=== PATIENT | male | born 1960 | race Caucasian/White ===

== ENCOUNTER → 2020-08-18 | Outpatient (CLI) | payer BC ==
--- NOTE | 2020-08-19 12:15 | US ---
EXAMINATION TYPE: US scrotum with doppler. Grayscale and color Doppler Duplex imaging performed of t he scrotum. 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 Pt states left testicle pain an d swelling that has now subsided/ pt states right testicle undescended since EXAM MEASUREMENTS: TESTICLES: Right Testicle: 4.8 x 1.6 x 3.6 cm Left Testicle: 4.9 x 2.1 x 3.4 cm EPIDIDYMIS HEAD: Right Epididymis: 1.5 cm Left Epididymis: 1.1 cm Doppler performed to assess for testicular vascularity; good bilateral color flow and waveforms are s een. Presence of hydroceles: No Presence of varicoceles: Yes, lateral to left testicle Right epi head cyst= 0.9 x 0.8 x 1.5 cm Right testicle grossly heterogeneous No concerning scrotal fluid collection or hydrocele. IMPRESSION: Markedly heterogeneous right testicle, cannot exclude diffuse infiltrative neoplasm. Advi se urology referral.
== END | disposition home or self-care (01) ==
LOC: RADUSMAIN 17:27
PROVIDERS: ATTEND Family Medicine
DX: N42.9 Disorder of prostate, unspecified (principal); I86.1 Scrotal varices
CPT/HCPCS: 76870; 93975

== ENCOUNTER 2021-09-19 04:44 | Emergency (ER) | payer OTHER ==
[2021-09-19] MEDS ORDERED: SODIUM CHLORIDE 0.9% 1,000 ML IV STA (05:20)
[2021-09-19] MEDS ORDERED: METOPROLOL TARTRATE 5 MG/5 ML VIAL IVP STA (05:20)
--- NOTE | 2021-09-19 05:20 | ED ---
SOB HPI - General Chief Complaint: Shortness of Breath Stated Complaint: headache,SOB,hypertension Time Seen by Provider: 09/19/21 04:46 Source: patient Mode of arrival: ambulatory - Related Data Home Medications Medication Instructions Recorded Confirmed Atorvastatin [Lipitor] 80 mg PO DAILY 11/29/16 11/29/16 Losartan Potassium [Cozaar] 50 mg PO DAILY PRN 11/29/16 11/29/16 hydroCHLOROthiazide 25 mg PO DAILY 11/29/16 11/29/16 Allergies Allergy/AdvReac Type Severity Reaction Status Date / Time No Known Allergies Allergy Verified 09/19/21 04:50 Review of Systems ROS Statement: Those systems with pertinent positive or pertinent negative responses have been documented in the HPI. ROS Other: All systems not noted in ROS Statement are negative. Past Medical History Past Medical History: Hypertension Additional Past Medical History / Comment(s): atrial flutter History of Any Multi-Drug Resistant Organisms: None Reported Past Surgical History: Hernia Repair Past Psychological History: No Psychological Hx Reported Smoking Status: Never smoker Past Alcohol Use History: Occasional Past Drug Use History: None Reported Course Vital Signs 09/19/21 09/19/21 04:45 05:50 Temperature 97 F L Pulse Rate 65 66 Respiratory 18 16 Rate Blood Pressure 163/94 160/99 O2 Sat by Pulse 98 97 Oximetry Medical Decision Making - Lab Data Result diagrams: 09/19/21 05:46 Lab Results 09/19/21 Range/Units 05:46 WBC 6.4 (3.8-10.6) k/uL RBC 4.85 (4.30-5.90) m/uL Hgb 16.0 (13.0-17.5) gm/dL Hct 44.8 (39.0-53.0) % MCV 92.3 (80.0-100.0) fL MCH 33.0 (25.0-35.0) pg MCHC 35.8 (31.0-37.0) g/dL RDW 12.9 (11.5-15.5) % Plt Count 208 (150-450) k/uL MPV 8.1 Neutrophils % 71 % Lymphocytes % 17 % Monocytes % 7 % Eosinophils % 3 % Basophils % 1 % Neutrophils # 4.5 (1.3-7.7) k/uL Lymphocytes # 1.1 (1.0-4.8) k/uL Monocytes # 0.4 (0-1.0) k/uL Eosinophils # 0.2 (0-0.7) k/uL Basophils # 0.0 (0-0.2) k/uL Hyperchromasia Slight - EKG Data -: EKG Interpreted by Me (EKG is sinus rhythm 60 MA 162 QRS 82 QTC 424) Disposition Clinical Impression: Hypertension Disposition: HOME SELF-CARE Condition: Good Instructions (If sedation given, give patient instructions): Hypertension (ED) Is patient prescribed a controlled substance at d/c from ED?: No Referrals: Claire Kidd MD [Primary Care Provider] - 1-2 days
--- NOTE | 2021-09-19 06:10 | CT ---
EXAMINATION TYPE: CT brain wo con DATE OF EXAM: 09/19/2021 COMPARISON: None HISTORY: dizziness, headache CT DLP: 1086.4 mGycm Automated exposure control for dose reduction was used. CT brain without contrast. Ventricles have normal size. There is no mass effect nor midline shift. There is no sign of intracran ial hemorrhage. There are small areas of hypodensity in the white matter in both cerebral hemispheres that measure up to 1.5 cm in the posterior frontal lobes and the left parietal lobe. Calvarium is intact. Skull base is intact. There is normal aeration of the mastoid sinuses. IMPRESSION: There is evidence of chronic small vessel ischemia in the white matter as above. No evidence of a cor tical infarct.
[2021-09-19 06:20] LABS: Basophils % (A) 1 %; Eosinophils # (A) 0.2 k/uL (0-0.7); Eosinophils % (A) 3 %; HCT 44.8 % (39.0-53.0); Hyperchromasia Slight; Lymphocytes # (A) 1.1 k/uL (1.0-4.8); Lymphocytes % (A) 17 %; MCHC 35.8 g/dL (31.0-37.0); MCV 92.3 fL (80.0-100.0); Mean Platelet Volume 8.1; Monocytes # (A) 0.4 k/uL (0-1.0); Monocytes % (A) 7 %; Neutrophils # (A) 4.5 k/uL (1.3-7.7); Neutrophils % (A) 71 %; Platelet Count 208 k/uL (150-450); RBC 4.85 m/uL (4.30-5.90); RDW 12.9 % (11.5-15.5); WBC 6.4 k/uL (3.8-10.6)
--- NOTE | 2021-09-19 06:23 | CT ---
EXAMINATION TYPE: CT angio chest DATE OF EXAM: 09/19/2021 COMPARISON: None HISTORY: sob CT DLP: 409.8 mGycm Automated exposure control for dose reduction was used. CONTRAST: Performed with IV Contrast, patient injected with 80 mL of Isovue 370. There are 3-D post processed images. The lungs are clear of consolidation. There is no evidence of a pulmonary mass. There is no pleural e ffusion. There is no pericardial effusion. There is minimal subsegmental atelectasis at the lung base s. There are anterior hepatic cysts. There are no hilar masses. There is no mediastinal adenopathy. There is normal contrast opacification of the pulmonary arteries. There are no filling defects. There is no sign of aortic aneurysm or diss ection. Ascending aorta measures 3.3 cm. Thoracic spine is intact. There is no compression fracture. Sternum is intact. IMPRESSION: No evidence of pulmonary embolism.
[2021-09-19 06:35] LABS: INR 0.9 (<1.2); Partial Thromboplastin Time 22.5 sec (22.0-30.0); Prothrombin Time 10.1 sec (9.0-12.0)
[2021-09-19 06:44] LABS: ALT 26 U/L (4-49); AST 28 U/L (17-59); African American GFR (CKD) >90 (>60 ml/min/1.73 sqM); Albumin 4.1 g/dL (3.5-5.0); Alkaline Phosphatase 54 U/L (38-126); Anion Gap 8 mmol/L; Blood Urea Nitrogen 18 mg/dL (9-20); Calcium 9.7 mg/dL (8.4-10.2); Carbon Dioxide 24 mmol/L (22-30); Chloride 106 mmol/L (98-107); Glucose 109 mg/dL (74-99); Magnesium 2.2 mg/dL (1.6-2.3); Non-African American GFR(CKD) >90 (>60 ml/min/1.73 sqM); Phosphorus 3.5 mg/dL (2.5-4.5); Sodium 138 mmol/L (137-145); Total Bilirubin 0.9 mg/dL (0.2-1.3); Total Protein 6.9 g/dL (6.3-8.2)
[2021-09-19 06:56] VITALS: PULSE 55
[2021-09-19 08:23] VITALS: BP 165/87; RESP 16; TEMP 97.6
== END 2021-09-19 08:38 | disposition home or self-care (01) ==
LOC: EC 04:44
DX: I10 Essential (primary) hypertension (principal); Z79.899 Other long term (current) drug therapy
CPT/HCPCS: 93005; 85379; 83880; 80053; 83735; 84100; 84484; 85025; 85610; 85730; 70450; 71275; 99285; 96374; 96361 ×2; Q9967

== ENCOUNTER 2023-11-30 08:03 | Emergency (ER) | payer OTHER ==
[2023-11-30] MEDS ORDERED: IBUPROFEN 600 MG TAB PO STA (08:23)
[2023-11-30] MEDS ORDERED: ACETAMINOPHEN TAB 500 MG TAB PO STA (08:23)
--- NOTE | 2023-11-30 08:28 | ED ---
General Adult HPI - General Chief complaint: Upper Respiratory Infection Stated complaint: Fever Time Seen by Provider: 11/30/23 08:15 Source: patient, RN notes reviewed, old records reviewed Mode of arrival: ambulatory Limitations: no limitations - History of Present Illness Initial comments: This is a 63-year-old male who presents emergency Department complaining that he has headache and right ear pain. Patient states that the symptoms started yesterday and he tested positive for cold yesterday. Patient states he has an occasional cough but no significant cough. Patient states he has also a very mild sore throat. Patient states he has not taken any Tylenol or Motrin. Patient denies any shortness of breath chest pain or palpitations. - Related Data Home Medications Medication Instructions Recorded Confirmed Atorvastatin [Lipitor] 80 mg PO DAILY 11/29/16 11/29/16 Losartan Potassium [Cozaar] 50 mg PO DAILY PRN 11/29/16 11/29/16 hydroCHLOROthiazide 25 mg PO DAILY 11/29/16 11/29/16 Previous Rx's Medication Instructions Recorded Metoprolol Tartrate [Lopressor] 25 mg PO BID #60 tablet 09/19/21 Amoxicillin 500 mg PO Q8H #30 capsule 11/30/23 Allergies Allergy/AdvReac Type Severity Reaction Status Date / Time prednisone AdvReac Chest Pain Verified 11/30/23 08:09 Review of Systems ROS Statement: Those systems with pertinent positive or pertinent negative responses have been documented in the HPI. ROS Other: All systems not noted in ROS Statement are negative. Past Medical History Past Medical History: Hypertension Additional Past Medical History / Comment(s): atrial flutter History of Any Multi-Drug Resistant Organisms: None Reported Past Surgical History: Hernia Repair Past Psychological History: No Psychological Hx Reported Smoking Status: Never smoker Past Alcohol Use History: Occasional Past Drug Use History: None Reported General Exam - General Exam Comments Initial Comments: GENERAL: Patient is well-developed and well-nourished. Patient is nontoxic and well- hydrated and is in mild distress. ENT: Neck is soft and supple. No significant lymphadenopathy is noted. Oropharynx is clear. Moist mucous membranes. Neck has full range of motion without eliciting any pain. Patient's right ear is bulging and erythematous EYES: The sclera were anicteric and conjunctiva were pink and moist. Extraocular movements were intact and pupils were equal round and reactive to light. Eyelids were unremarkable. PULMONARY: Unlabored respirations. Good breath sounds bilaterally. No audible rales rhonchi or wheezing was noted. CARDIOVASCULAR: There is a regular rate and rhythm without any murmurs gallops or rubs. ABDOMEN: Soft and nontender with normal bowel sounds. SKIN: Skin is clear with no lesions or rashes and otherwise unremarkable. NEUROLOGIC: Patient is alert and oriented x3. Cranial nerves II through XII are grossly intact. Motor and sensory are also intact. Normal speech, volume and content. Symmetrical smile. MUSCULOSKELETAL: Normal extremities with adequate strength and full range of motion. LYMPHATICS: No significant lymphadenopathy is noted PSYCHIATRIC: Normal psychiatric evaluation. Limitations: no limitations Course Vital Signs 11/30/23 11/30/23 08:04 08:40 Temperature 99.4 F 99.4 F Pulse Rate 88 84 Respiratory 18 20 Rate Blood Pressure 167/98 138/89 O2 Sat by Pulse 97 96 Oximetry Medical Decision Making - Medical Decision Making Was pt. sent in by a medical professional or institution (, PA, TOP FRAME FITTER, urgent care, hospital, or skilled nursing...) When possible be specific @ -No Did you speak to anyone other than the patient for history (EMS, parent, family, police, friend...)? What history was obtained from this source @ -No Did you review nursing and triage notes (agree or disagree)? Why? @ -I reviewed and agree with nursing and triage notes Were old charts reviewed (outside hosp., previous admission, EMS record, old EKG, old radiological studies, urgent care reports/EKG's, skilled nursing records)? Report findings @ -I compared today's chest x-ray with previous. Differential Diagnosis (chest pain, altered mental status, abdominal pain women, abdominal pain men, vaginal bleeding, weakness, fever, dyspnea, syncope, headache, dizziness, GI bleed, back pain, seizure, CVA, palpatations, mental health, musculoskeletal)? @ -Differential Fever: Pneumonia, viral URI, endocarditis, COVID, myocarditis, pericarditis, otitis, sinusitis, peritonsillar Abscess, retropharyngeal Abscess, epiglottitis, peritonitis, appendicitis, Lydia cystitis, diverticulitis, hepatitis, colitis, UTI, PID, TOA, pyelonephritis, prostatitis, epididymitis, meningitis, encephalitis, pulmonary embolism, CVA, thyroid storm, pancreatitis, adrenal crisis, cavernous sinus thrombosis, this is not meant to be an all-inclusive list. EKG interpreted by me (3pts min.). @ -As above X-rays interpreted by me (1pt min.). @ -Chest x-ray shows no acute abnormality. CT interpreted by me (1pt min.). @ -None done U/S interpreted by me (1pt. min.). @ -None done What testing was considered but not performed or refused? (CT, X-rays, U/S, labs)? Why? @ -None What meds were considered but not given or refused? Why? @ -None Did you discuss the management of the patient with other professionals (professionals i.e. , PA, TOP FRAME FITTER, lab, RT, psych nurse, social science research assistant, slurry mixer, teacher, special skills officer, hydro generation manager)? Give summary @ -No Was smoking cessation discussed for >3mins.? @ -No Was critical care preformed (if so, how long)? @ -No Were there social determinants of health that impacted care today? How? (Homelessness, low income, unemployed, alcoholism, drug addiction, transportation, low edu. Level, literacy, decrease access to med. care, fci, rehab)? @ -No Was there de-escalation of care discussed even if they declined (Discuss DNR or withdrawal of care, Hospice)? DNR status @ -No What co-morbidities impacted this encounter? (DM, HTN, Smoking, COPD, CAD, Cancer, CVA, ARF, Chemo, Hep., AIDS, mental health diagnosis, sleep apnea, morbid obesity)? @ -None Was patient admitted / discharged? Hospital course, mention meds given and route, prescriptions, significant lab abnormalities, going to OR and other pertinent info. @ -Patient's COVID came back positive. Patient also had an infected right ear. Patient will be started on antibiotics. Patient was given Motrin and Tylenol for his fever and headache Undiagnosed new problem with uncertain prognosis? @ -No Drug Therapy requiring intensive monitoring for toxicity (Heparin, Nitro, Insulin, Cardizem)? @ -No Were any procedures done? @ -No Diagnosis/symptom? @ -COVID Acute, or Chronic, or Acute on Chronic? @ -Acute Uncomplicated (without systemic symptoms) or Complicated (systemic symptoms)? @ -Uncomplicated Side effects of treatment? @ -No Exacerbation, Progression, or Severe Exacerbation? @ -No Poses a threat to life or bodily function? How? (Chest pain, [place], [place], pneumonia, PE, COPD, DKA, ARF, appy, cholecystitis, CVA, Diverticulitis, Homicidal, Suicidal, threat to staff... and all critical care pts) @ -No Diagnosis/symptom? @ -Otitis media Acute, or Chronic, or Acute on Chronic? @ -Acute Uncomplicated (without systemic symptoms) or Complicated (systemic symptoms)? @ -Uncomplicated Side effects of treatment? @ -none Exacerbation, Progression, or Severe Exacerbation] @ -no Poses a threat to life or bodily function? @ -no - Lab Data Lab Results 11/30/23 Range/Units 08:38 Influenza Type A (PCR) Not Detected (Not Detectd) Influenza Type B (PCR) Not Detected (Not Detectd) RSV (PCR) Not Detected (Not Detectd) SARS-CoV-2 (PCR) Detected A (Not Detectd) Disposition Clinical Impression: Otitis media, COVID Disposition: HOME SELF-CARE Condition: Good Instructions (If sedation given, give patient instructions): COVID-19 (Coronavirus Disease 2019) (ED), Ear Infection (ED) Prescriptions: Amoxicillin 500 mg PO Q8H #30 capsule Is patient prescribed a controlled substance at d/c from ED?: No Referrals: Pascual Gill MD [Primary Care Provider] - 1-2 days Time of Disposition: 09:41
[2023-11-30 08:42] VITALS: RESP 20
--- NOTE | 2023-11-30 09:16 | XR ---
EXAMINATION TYPE: XR chest 2V DATE OF EXAM: 11/30/2023 8:51 AM CLINICAL INDICATION:Male, 63 years old with history of Difficulty breathing ; [facility] COMPARISON: 11/29/2016 TECHNIQUE: XR chest 2V. Frontal PA and lateral views of the chest. FINDINGS: Lines/Tubes: None. Heart/mediastinum: Heart size is normal. Mediastinal silhouette is unremarkable. Pulmonary vascularity: Not increased, Lungs/Pleura: There is no evidence of pleural effusion, focal consolidation, or pneumothorax. Probably mildly lingular scarring. Musculoskeletal: No acute osseous abnormality demonstrated in the limits of the exam. Mild degenera tive change of the shoulders. Multilevel endplate spurring in the spine. Other findings: None. IMPRESSION: No acute findings, or significant interval change.
[2023-11-30 10:13] VITALS: BP 120/76; PULSE 73; TEMP 98.5
== END 2023-11-30 10:11 | disposition home or self-care (01) ==
LOC: EC 08:03
DX: U07.1 COVID-19 (principal); H66.91 Otitis media, unspecified, right ear; I10 Essential (primary) hypertension; Z79.899 Other long term (current) drug therapy; Z88.8 Allergy status to other drugs, medicaments and biological substances
CPT/HCPCS: 71046; 87636; 99284